=== PATIENT | female | born 1990 ===

== ENCOUNTER 2018-03-16 07:08 | Inpatient (IN) | payer OTHER ==
[~2018-03-16] VITALS: Ht 154.9 cm; Wt 60.3 kg
[2018-03-16] MEDS ORDERED: PRENATAL TABLE1 EAC1 PO (11:16)
[2018-03-16] MEDS ORDERED: FOLIC ACID1 MG PO (11:17)
== END 2018-03-19 18:04 | disposition home or self-care (01) | DRG 766 ==
LOC: OB/GYN 07:08 → LDR 07:08 → O/R 12:00 → OB/GYN 15:33
PROVIDERS: Obstetrics & Gynecology
PROC: 4A033R1 Measurement of Arterial Saturation, Peripheral, Percutaneous Approach (ICD-10-PCS; 2018-03-16)
PROC: 4A1HXCZ Monitoring of Products of Conception, Cardiac Rate, External Approach (ICD-10-PCS; 2018-03-16)
PROC: 10D00Z1 Extraction of Products of Conception, Low, Open Approach (ICD-10-PCS; principal; 2018-03-16 13:45)
DX: O82 Encounter for cesarean delivery without indication (principal); Z3A.39 39 weeks gestation of pregnancy; Z37.0 Single live birth